=== PATIENT | female | born 1945 | race Caucasian/White ===

== ENCOUNTER 2023-03-22 16:08 | Emergency (ER) | payer MEDICARE ==
[2023-03-22] MEDS ORDERED: Sodium Chloride 0.9% 10 ML Syringe FLUSH PRN (16:17)
[2023-03-22] MEDS ORDERED: Sodium Chloride 0.9% 1,000 ML IV ONE (16:17)
[2023-03-22 16:42] LABS: BASOPHILS ABSOLUTE AUTO 0.02 10^3/uL (0.00-0.10); BASOPHILS PERCENT AUTO 0.2 % (0.0-1.0); EOSINOPHILS ABSOLUTE AUTO 0.33 10^3/uL (0.10-0.30); EOSINOPHILS PERCENT AUTO 4.1 % (1.0-3.0); HEMATOCRIT 40.5 % (37.0-47.0); HEMOGLOBIN 13.2 g/dL (12.0-16.0); IMMATURE GRAN ABSOLUTE AUTO 0.02 10^3/uL (0.00-0.50); IMMATURE GRAN PERCENT AUTO 0.2 % (0.0-5.0); LYMPHOCYTES ABSOLUTE AUTO 1.39 10^3/uL (1.00-4.00); LYMPHOCYTES PERCENT AUTO 17.3 % (20.0-40.0); MEAN CORPUSCULAR HEMOGLOBIN 30.9 pg (27.0-31.0); MEAN CORPUSCULAR HGB CONC 32.6 g/dL (32.0-36.0); MEAN CORPUSCULAR VOLUME 94.8 fL (82.0-92.0); MEAN PLATELET VOLUME 10.3 fL (7.4-10.4); MONOCYTES ABSOLUTE AUTO 0.92 10^3/uL (0.10-0.80); MONOCYTES PERCENT AUTO 11.4 % (2.0-8.0); NEUTROPHILS ABSOLUTE AUTO 5.37 10^3/uL (2.50-7.00); NEUTROPHILS PERCENT AUTO 66.8 % (50.0-70.0); PLATELET COUNT,PLT 246 10^3/uL (150-400); RED BLOOD CELL COUNT 4.27 10^6/uL (3.80-5.50); RED CELL DISTRIBUTION WIDTH 15.2 % (11.5-14.5); WHITE BLOOD CELL COUNT,WBC 8.05 10^3/uL (5.00-10.00)
[2023-03-22 16:59] LABS: ALBUMIN 3.36 g/dL (3.40-5.00); ANION GAP 14.9 mmol/L (5-15); BILIRUBIN TOTAL 0.9 mg/dL (0.2-1.0); CALCIUM 9.2 mg/dL (8.7-10.3); CARBON DIOXIDE,CO2 26.7 mmol/L (21.0-32.0); CREATININE 0.83 mg/dL (0.51-1.17); EST CRCL DRUG DOSING (CG) 45.61 mL/min; POTASSIUM,K 3.6 mmol/L (3.5-5.1); PROTEIN TOTAL,TP 7.8 g/dL (6.4-8.2)
[2023-03-22 17:02] LABS: LACTIC ACID 1.3 mmol/L (0.4-2.0)
[2023-03-22 17:42] LABS: APPEARANCE,URINE SLIGHTLY CLOUDY (CLEAR); BILIRUBIN,URINE NEGATIVE (NEGATIVE); COLOR,URINE YELLOW (YELLOW); GLUCOSE,URINE NEGATIVE (NEGATIVE); KETONES,URINE NEGATIVE (NEGATIVE); LEUKOCYTE ESTERASE,URINE SMALL (NEGATIVE); NITRITE,URINE NEGATIVE (NEGATIVE); OCCULT BLOOD,URINE NEGATIVE (NEGATIVE); PH,URINE 6.5 (5.0-9.0); PROTEIN,URINE NEGATIVE (NEGATIVE); UROBILINOGEN,URINE 0.2 E.U./dL (0.2-1.0)
[2023-03-22 17:59] LABS: BACTERIA,URINE RARE /HPF (NONE TO FEW); EPITHELIAL CELLS,URINE FEW /LPF; MUCUS,URINE OCCASIONAL /LPF (NEGATIVE); RBC,URINE 0-5 /HPF (0-5)
[2023-03-22] MEDS ORDERED: levETIRAcetam in NaCl (iso-os) 500 MG in Premix Bag 1 BAG IV ONE ×2 (18:54)
[2023-03-22] MEDS ORDERED: Sodium Chloride 0.9% 50 ML IV SCH (19:15)
[2023-03-22] MEDS ORDERED: Dexamethasone 4 MG/ML SDV IVPUSH ONE (19:23)
[2023-03-22 19:56] VITALS: BP 175/86; PULSE 114
== END 2023-03-22 19:55 ==
LOC: KA.ED 16:08
DX: G93.89 Other specified disorders of brain (principal); I10 Essential (primary) hypertension; E78.00 Pure hypercholesterolemia, unspecified; Z88.8 Allergy status to other drugs, medicaments and biological substances; Z79.899 Other long term (current) drug therapy
CPT/HCPCS: 36415; 70450; 71045; 80053; 81001; 83605; 84484; 85025; 87040; 93005; 93010; 96361; 96374; 96375; 99284; 99285-25; J1100; J1953; J3490; J7030

== ENCOUNTER 2023-05-23 08:55 | Emergency (ER) | payer MEDICARE ==
[2023-05-23] MEDS ORDERED: Sodium Chloride 0.9% 10 ML Syringe FLUSH PRN (09:00)
[2023-05-23 09:17] LABS: HEMATOCRIT 27.4 % (37.0-47.0); HEMOGLOBIN 9.5 g/dL (12.0-16.0); MEAN CORPUSCULAR HEMOGLOBIN 32.4 pg (27.0-31.0); MEAN CORPUSCULAR HGB CONC 34.7 g/dL (32.0-36.0); MEAN CORPUSCULAR VOLUME 93.5 fL (82.0-92.0); MEAN PLATELET VOLUME 11.2 fL (7.4-10.4); PLATELET COUNT,PLT 197 10^3/uL (150-400); RED BLOOD CELL COUNT 2.93 10^6/uL (3.80-5.50); RED CELL DISTRIBUTION WIDTH 16.2 % (11.5-14.5); WHITE BLOOD CELL COUNT,WBC 6.15 10^3/uL (5.00-10.00)
[2023-05-23 09:24] VITALS: BP 102/82; PULSE 104
[2023-05-23 09:30] LABS: ALBUMIN 2.22 g/dL (3.40-5.00); ANION GAP 9.9 mmol/L (5-15); BILIRUBIN TOTAL 0.9 mg/dL (0.2-1.0); CALCIUM 8.6 mg/dL (8.7-10.3); CREATININE 0.66 mg/dL (0.51-1.17); EST CRCL DRUG DOSING (CG) 57.35 mL/min; POTASSIUM,K 3.9 mmol/L (3.5-5.1); PROTEIN TOTAL,TP 6.4 g/dL (6.4-8.2)
[2023-05-23 09:35] LABS: LACTIC ACID 1.4 mmol/L (0.4-2.0)
[2023-05-23 09:41] LABS: BAND PERCENT MAN 4 % (4-12); LYMPHOCYTES ABSOLUTE MAN 0.7995; LYMPHOCYTES PERCENT MAN 13 % (20-40); MONOCYTES ABSOLUTE MAN 0.1845; MONOCYTES PERCENT MAN 3 % (2-8); SEG NEUTROPHILS PERCENT MAN 80 % (50-70)
[2023-05-23 09:45] LABS: HYPERSEGMENTED NEUTROPHILS FEW
[2023-05-23] MEDS: Sodium Chloride 0.9% 1,000 ML IV SCH (10:42)
== END 2023-05-23 11:20 | disposition swing bed (61) ==
LOC: KA.ED 08:55
DX: C79.31 Secondary malignant neoplasm of brain (principal); C78.7 Secondary malignant neoplasm of liver and intrahepatic bile duct; C34.90 Malignant neoplasm of unspecified part of unspecified bronchus or lung; C48.1 Malignant neoplasm of specified parts of peritoneum; D64.9 Anemia, unspecified; E86.0 Dehydration; E87.8 Other disorders of electrolyte and fluid balance, not elsewhere classified; E78.00 Pure hypercholesterolemia, unspecified; Z79.899 Other long term (current) drug therapy; Z79.82 Long term (current) use of aspirin; Z79.01 Long term (current) use of anticoagulants; Z88.8 Allergy status to other drugs, medicaments and biological substances; Z91.041 Radiographic dye allergy status
CPT/HCPCS: 36415; 71045; 80053; 83605; 83880; 85025; 96360; 99284; 99285-25; J7030

== ENCOUNTER 2023-05-23 11:20 | Inpatient (IN) | payer MEDICARE ==
[2023-05-23] MEDS ORDERED: Ibuprofen 600 MG Tab PO PRN (12:17)
[2023-05-23] MEDS ORDERED: Ondansetron 4 MG/2 ML SDV IV PRN (12:17)
[2023-05-23] MEDS ORDERED: Morphine 2 MG/ML SYRINGE IVPUSH PRN (12:17)
[2023-05-23] MEDS ORDERED: Promethazine 25 MG/ML SDV IV PRN ×2 (12:17→12:34)
[2023-05-23] MEDS ORDERED: Docusate Sodium 100 MG Cap PO PRN (12:17)
[2023-05-23] MEDS ORDERED: Ondansetron 4 MG Tab.DIS PO PRN (12:17)
[2023-05-23] MEDS ORDERED: Acetaminophen 325 MG Tab PO PRN (12:17)
[2023-05-23] MEDS ORDERED: Calcium Carbonate 500 MG Tab.Chew PO PRN (12:17)
[2023-05-23] MEDS ORDERED: Magnesium Hydroxide 400 MG/5 ML Susp 30 ML Cup PO PRN (12:17)
[2023-05-23] MEDS ORDERED: Polyethylene Glycol 3350 Powder 17 GM Packet PO PRN (12:26)
[2023-05-23] MEDS: Nystatin Topical Powder 15 GM Bottle TOP SCH (15:15)
[2023-05-23] MEDS: Amoxicillin/Clavulanate K 875-125 MG Tab PO SCH (15:15)
[2023-05-23 15:19] LABS: INFLUENZA A NAA NEGATIVE (NEGATIVE); INFLUENZA B NAA NEGATIVE (NEGATIVE); RESPIRATORY SYNCYTIAL VIR NAA NEGATIVE (NEGATIVE)
[2023-05-23 15:23] LABS: CORONAVIRUS COVID-19 NAA NEGATIVE (NEGATIVE)
[2023-05-23 15:51] LABS: APPEARANCE,URINE CLEAR (CLEAR); BILIRUBIN,URINE NEGATIVE (NEGATIVE); COLOR,URINE DARK YELLOW (YELLOW); GLUCOSE,URINE NEGATIVE (NEGATIVE); KETONES,URINE NEGATIVE (NEGATIVE); NITRITE,URINE NEGATIVE (NEGATIVE); OCCULT BLOOD,URINE MODERATE (NEGATIVE); PH,URINE 5.5 (5.0-9.0); PROTEIN,URINE 100 mg/dL (NEGATIVE); UROBILINOGEN,URINE 0.2 E.U./dL (0.2-1.0)
[2023-05-23 16:03] LABS: LEUKOCYTE ESTERASE,URINE SMALL (NEGATIVE)
[2023-05-23 16:04] LABS: BACTERIA,URINE MODERATE /HPF (NONE TO FEW); EPITHELIAL CELLS,URINE FEW /LPF; RBC,URINE 30-40 /HPF (0-5)
[2023-05-23 16:05] LABS: GRANULAR CASTS,URINE FEW; MUCUS,URINE RARE /LPF (NEGATIVE)
[2023-05-23] MEDS: oxyCODONE 5 MG Tab PO PRN (19:17)
[2023-05-23] MEDS: Apixaban 5 MG Tab PO SCH (20:52)
[2023-05-23] MEDS: levETIRAcetam 500 MG Tab PO SCH (20:52)
[2023-05-23] MEDS: Gabapentin 100 MG Cap PO SCH (20:53)
[2023-05-24] MEDS: Sodium Chloride 0.9% 1,000 ML IV SCH (06:59)
[2023-05-24] MEDS: Omeprazole 20 MG Cap.CR PO SCH (07:08)
[2023-05-24 07:31] LABS: HEMATOCRIT 25.2 % (37.0-47.0); HEMOGLOBIN 8.5 g/dL (12.0-16.0); MEAN CORPUSCULAR HEMOGLOBIN 32.3 pg (27.0-31.0); MEAN CORPUSCULAR HGB CONC 33.7 g/dL (32.0-36.0); MEAN CORPUSCULAR VOLUME 95.8 fL (82.0-92.0); MEAN PLATELET VOLUME 10.7 fL (7.4-10.4); PLATELET COUNT,PLT 138 10^3/uL (150-400); RED BLOOD CELL COUNT 2.63 10^6/uL (3.80-5.50); RED CELL DISTRIBUTION WIDTH 16.4 % (11.5-14.5)
[2023-05-24 07:41] LABS: ANION GAP 9.1 mmol/L (5-15); CALCIUM 8.2 mg/dL (8.7-10.3); CARBON DIOXIDE,CO2 32.8 mmol/L (21.0-32.0); CREATININE 0.51 mg/dL (0.51-1.17); EST CRCL DRUG DOSING (CG) 74.22 mL/min; MAGNESIUM 1.9 mg/dL (1.8-2.4); POTASSIUM,K 3.9 mmol/L (3.5-5.1)
[2023-05-24] MEDS: Furosemide 20 MG Tab PO SCH (08:26)
[2023-05-24] MEDS: Loratadine 10 MG Tab PO SCH (08:26)
[2023-05-24] MEDS: Aspirin 81 MG Tab.Chew PO SCH (08:26)
[2023-05-24 08:36] LABS: SLIDE REVIEW YES
[2023-05-24 08:38] LABS: BAND PERCENT MAN 6 % (4-12); LYMPHOCYTES PERCENT MAN 45 % (20-40); SEG NEUTROPHILS PERCENT MAN 40 % (50-70)
[2023-05-24 08:39] LABS: BASOPHILS PERCENT MAN 2 % (0-1); EOSINOPHILS PERCENT MAN 1 % (1-3); HYPERSEGMENTED NEUTROPHILS FEW; MONOCYTES PERCENT MAN 6 % (2-8)
[2023-05-24 08:41] LABS: WHITE BLOOD CELL COUNT,WBC 1.09 10^3/uL (5.00-10.00)
[2023-05-24] MEDS: Levofloxacin 500 MG Tab PO SCH (12:46)
[2023-05-24] MEDS: Sennosides/Docusate Sodium 50-8.6 MG Tab PO PRN (15:30)
[2023-05-24] MEDS: Sodium Chloride 0.9% 1,000 ML IV ONE (15:57)
[2023-05-24 16:03] VITALS: BP 90/48; PULSE 120
[2023-05-24] MEDS ORDERED: Cefepime 2 GM in Sodium Chloride 0.9% 50 ML IV SCH (17:30)
== END 2023-05-24 17:31 | disposition critical access hospital (66) | DRG 808 ==
LOC: KA.MS 11:20
PROVIDERS: ADMIT Family Medicine; ATTEND Family Medicine
DX: D70.1 Agranulocytosis secondary to cancer chemotherapy (principal); J18.9 Pneumonia, unspecified organism; C34.90 Malignant neoplasm of unspecified part of unspecified bronchus or lung; C78.6 Secondary malignant neoplasm of retroperitoneum and peritoneum; C78.7 Secondary malignant neoplasm of liver and intrahepatic bile duct; C79.31 Secondary malignant neoplasm of brain; T45.1X5A Adverse effect of antineoplastic and immunosuppressive drugs, initial encounter; E78.00 Pure hypercholesterolemia, unspecified; M54.9 Dorsalgia, unspecified; G89.29 Other chronic pain; E86.0 Dehydration; E66.9 Obesity, unspecified; M06.9 Rheumatoid arthritis, unspecified; R06.09 Other forms of dyspnea; Z88.8 Allergy status to other drugs, medicaments and biological substances; Z79.899 Other long term (current) drug therapy; Z79.01 Long term (current) use of anticoagulants; Z79.82 Long term (current) use of aspirin; Z79.52 Long term (current) use of systemic steroids; Z98.51 Tubal ligation status; Z68.31 Body mass index [BMI] 31.0-31.9, adult; Z86.711 Personal history of pulmonary embolism
CPT/HCPCS: 0241U; 36415; 51798; 71045; 80048; 80053; 81001; 83605; 83735; 83880; 85025; 87040; 87086; 96360; 99223-GT; 99238-GT; 99284; 99285-25; A9270-GY; J7030; Q3014

== ENCOUNTER 2023-05-24 17:31 | Inpatient (IN) | payer MEDICARE ==
[2023-05-24] MEDS ORDERED: Sennosides/Docusate Sodium 50-8.6 MG Tab PO PRN (18:09)
[2023-05-24] MEDS ORDERED: Ondansetron 4 MG/2 ML SDV IV PRN (18:09)
[2023-05-24] MEDS ORDERED: Acetaminophen 325 MG Tab PO PRN (18:09)
[2023-05-24] MEDS ORDERED: Polyethylene Glycol 3350 Powder 17 GM Packet PO PRN (18:09)
[2023-05-24] MEDS ORDERED: Ibuprofen 600 MG Tab PO PRN (18:09)
[2023-05-24] MEDS ORDERED: Ondansetron 4 MG Tab.DIS PO PRN (18:09)
[2023-05-24] MEDS ORDERED: Magnesium Hydroxide 400 MG/5 ML Susp 30 ML Cup PO PRN (18:09)
[2023-05-24] MEDS ORDERED: Docusate Sodium 100 MG Cap PO PRN (18:09)
[2023-05-24] MEDS ORDERED: oxyCODONE 5 MG Tab PO PRN (18:09)
[2023-05-24] MEDS ORDERED: Calcium Carbonate 500 MG Tab.Chew PO PRN (18:09)
[2023-05-24] MEDS: Cefepime 2 GM in Sodium Chloride 0.9% 50 ML IV SCH (18:25)
[2023-05-24] MEDS: Morphine 2 MG/ML SYRINGE IVPUSH PRN (19:16)
[2023-05-24] MEDS: Nystatin Topical Powder 15 GM Bottle TOP SCH (21:58)
[2023-05-24] MEDS: levETIRAcetam 500 MG Tab PO SCH (22:21)
[2023-05-24] MEDS: Apixaban 5 MG Tab PO SCH (22:21)
[2023-05-24] MEDS: Gabapentin 100 MG Cap PO SCH (22:22)
[2023-05-25] MEDS: LORazepam 2 MG/ML SDV IVPUSH PRN ×2 (01:25→10:51)
[2023-05-25] MEDS: Cefepime 2 GM in Sodium Chloride 0.9% 50 ML IV SCH (02:20)
[2023-05-25 06:21] VITALS: BP 104/53; PULSE 120
[2023-05-25 07:23] LABS: EOSINOPHILS ABSOLUTE AUTO 0.01 10^3/uL (0.10-0.30); EOSINOPHILS PERCENT AUTO 3.1 % (1.0-3.0); HEMATOCRIT 21.8 % (37.0-47.0); HEMOGLOBIN 7.3 g/dL (12.0-16.0); LYMPHOCYTES ABSOLUTE AUTO 0.24 10^3/uL (1.00-4.00); MEAN CORPUSCULAR HEMOGLOBIN 31.9 pg (27.0-31.0); MEAN CORPUSCULAR HGB CONC 33.5 g/dL (32.0-36.0); MEAN CORPUSCULAR VOLUME 95.2 fL (82.0-92.0); MEAN PLATELET VOLUME 10.6 fL (7.4-10.4); MONOCYTES ABSOLUTE AUTO 0.02 10^3/uL (0.10-0.80); MONOCYTES PERCENT AUTO 6.3 % (2.0-8.0); NEUTROPHILS ABSOLUTE AUTO 0.05 10^3/uL (2.50-7.00); NEUTROPHILS PERCENT AUTO 15.6 % (50.0-70.0); PLATELET COUNT,PLT 92 10^3/uL (150-400); RED BLOOD CELL COUNT 2.29 10^6/uL (3.80-5.50); RED CELL DISTRIBUTION WIDTH 16.2 % (11.5-14.5)
[2023-05-25 07:37] LABS: ALBUMIN 1.44 g/dL (3.40-5.00); ANION GAP 10.8 mmol/L (5-15); BILIRUBIN TOTAL 0.7 mg/dL (0.2-1.0); CALCIUM 7.7 mg/dL (8.7-10.3); CARBON DIOXIDE,CO2 30.3 mmol/L (21.0-32.0); CREATININE 0.48 mg/dL (0.51-1.17); EST CRCL DRUG DOSING (CG) 78.18 mL/min; POTASSIUM,K 3.1 mmol/L (3.5-5.1); PROTEIN TOTAL,TP 5.1 g/dL (6.4-8.2)
[2023-05-25] MEDS: Omeprazole 20 MG Cap.CR PO SCH (07:52)
[2023-05-25 08:08] LABS: WHITE BLOOD CELL COUNT,WBC 0.32 10^3/uL (5.00-10.00)
[2023-05-25] MEDS: Loratadine 10 MG Tab PO SCH (08:57)
[2023-05-25] MEDS ORDERED: Atropine 1% Ophth Soln 5 ML Bottle SL PRN (10:12)
[2023-05-25] MEDS: Morphine 2 MG/ML SYRINGE IVPUSH PRN (10:51)
[2023-05-25] MEDS ORDERED: Saliva Substitute Oral Spray 120 ML Bottle MUCMEM PRN (10:53)
[2023-05-27] MEDS ORDERED: Aspirin 81 MG Tab.Chew PO SCH (09:00)
== END 2023-05-26 12:35 | disposition expired | DRG 951 ==
LOC: KA.MS 17:31
PROVIDERS: ADMIT Internal Medicine; ATTEND Internal Medicine
DX: Z51.5 Encounter for palliative care (principal); A41.9 Sepsis, unspecified organism; J18.9 Pneumonia, unspecified organism; R65.20 Severe sepsis without septic shock; L03.311 Cellulitis of abdominal wall; C34.90 Malignant neoplasm of unspecified part of unspecified bronchus or lung; C79.31 Secondary malignant neoplasm of brain; G93.40 Encephalopathy, unspecified; D61.818 Other pancytopenia; D64.9 Anemia, unspecified; D70.1 Agranulocytosis secondary to cancer chemotherapy; E86.0 Dehydration; T45.1X5A Adverse effect of antineoplastic and immunosuppressive drugs, initial encounter; I95.9 Hypotension, unspecified; Z79.01 Long term (current) use of anticoagulants; Z79.82 Long term (current) use of aspirin; Z79.899 Other long term (current) drug therapy
CPT/HCPCS: 36415; 51702; 80053; 83605; 85025; 99223-GT; 99233-GT; 99239-GT; A9270-GY; J0692; J2060; J2270; J3370; J3490; J7050; Q3014